=== PATIENT | female | born 1950 | race Hispanic/Latino ===

== ENCOUNTER 2018-11-19 14:48 | Emergency (ER) | payer OTHER ==
[2018-11-19] MEDS ORDERED: LIDOCAINE 2%-EPI 1:200,000 20 ML VIAL IJ ONE (15:15)
[2018-11-19] MEDS ORDERED: TETANUS/DIPHTHERIA TOXOID [ADULT] 0.5 ML VIAL IM ONE (15:23)
== END 2018-11-19 15:55 | disposition home or self-care (01) ==
LOC: EDH 14:48
DX: S01.81XA Laceration without foreign body of other part of head, initial encounter (principal); I10 Essential (primary) hypertension; W18.39XA Other fall on same level, initial encounter; Y93.89 Activity, other specified; Y92.89 Other specified places as the place of occurrence of the external cause; Y99.8 Other external cause status
CPT/HCPCS: 12051; 90471; 90714; 99284; J3490

== ENCOUNTER 2018-11-23 08:43 | Emergency (ER) | payer OTHER | END 2018-11-23 11:17 | disposition home or self-care (01) | LOC: EDH 08:43 | DX: S20.212A Contusion of left front wall of thorax, initial encounter (principal); I10 Essential (primary) hypertension; Z90.710 Acquired absence of both cervix and uterus; Y04.0XXA Assault by unarmed brawl or fight, initial encounter; Y93.89 Activity, other specified; Y92.238 Other place in hospital as the place of occurrence of the external cause; Y99.8 Other external cause status | CPT/HCPCS: 71101; 93005 ==